=== PATIENT | female | born 1995 | race Hispanic/Latino ===

== ENCOUNTER 2018-06-24 22:40 | Emergency (ER) | payer SELFPAY ==
[~2018-06-24] VITALS: Ht 144.8 cm; Wt 68.0 kg
[2018-06-24 23:58] LABS: PREGNANCY TEST, URINE NEGATIVE (NEGATIVE)
[2018-06-25 00:03] LABS: BILIRUBIN,URINE NEGATIVE (NEGATIVE); CLARITY,URINE CLEAR (CLEAR); COLOR,URINE YELLOW (YELLOW); KETONES,URINE NEGATIVE (NEGATIVE); LEUKOCYTE ESTERASE ,URINE 1+ (NEGATIVE); NITRITE,URINE NEGATIVE (NEGATIVE); PROTEIN,URINE DIPSTICK NEGATIVE (NEGATIVE); URINE UROBILINOGEN 0.2 mg/dL (0.2 - 1)
[2018-06-25 00:10] LABS: BACTERIA,URINE FEW /HPF; EPITHELIAL CELLS,URINE FEW /LPF; RBC,URINE 0-5 /HPF (0-5)
== END 2018-06-25 00:30 | disposition home or self-care (01) ==
LOC: ER 22:40
DX: M54.5 Low back pain (principal); N30.90 Cystitis, unspecified without hematuria
CPT/HCPCS: 81001; 81025; 99281